=== PATIENT | male | born 1975 | race Caucasian/White ===

== ENCOUNTER 2017-05-26 12:21 | Day surgery (SDC) | payer OTHER ==
[~2017-05-26] VITALS: Ht 195.6 cm; Wt 108.4 kg
[~2017-05-26 12:21] MED LIST: ASACOL HD800 MG PO; CENTRUM COMPLE1 EACH PO; DICYCLOMINE HCL10 MG PO; IRON18 MG PO; PREDNISONE1 MG PO; PREDNISONE10 MG PO; PREDNISONE20 MG PO; PROTONIX40 MG PO; TYLENOL EXTRA500 MG PO; ZANTAC150 MG PO
[2017-05-26] MEDS ORDERED: LIALDA1.2 GM PO (12:45)
[2017-05-26] MEDS ORDERED: [UNRECOGNIZED DRUG - OTHER] (12:47)
== END 2017-05-26 14:45 | disposition home or self-care (01) ==
LOC: PAIN 12:21 → SDC 13:45 → PAIN 14:45
DX: M51.16 Intervertebral disc disorders with radiculopathy, lumbar region (principal); M47.26 Other spondylosis with radiculopathy, lumbar region; E66.3 Overweight; Z68.28 Body mass index [BMI] 28.0-28.9, adult; K21.9 Gastro-esophageal reflux disease without esophagitis; D50.9 Iron deficiency anemia, unspecified; D50.0 Iron deficiency anemia secondary to blood loss (chronic); D47.3 Essential (hemorrhagic) thrombocythemia; K51.90 Ulcerative colitis, unspecified, without complications; Z87.891 Personal history of nicotine dependence; Z88.0 Allergy status to penicillin
CPT/HCPCS: J1100; J2250; J3010

== ENCOUNTER 2017-06-24 07:29 | Day surgery (SDC) | payer OTHER ==
[~2017-06-24] VITALS: Ht 195.6 cm; Wt 108.4 kg
[~2017-06-24 07:29] MED LIST changes: +LIALDA1.2 GM PO; +[UNRECOGNIZED DRUG - OTHER]
== END 2017-06-24 09:40 | disposition home or self-care (01) ==
LOC: PAIN 07:29 → SDC 08:15 → PAIN 09:40
DX: M47.26 Other spondylosis with radiculopathy, lumbar region (principal); M51.16 Intervertebral disc disorders with radiculopathy, lumbar region; E66.3 Overweight; Z68.28 Body mass index [BMI] 28.0-28.9, adult; K51.90 Ulcerative colitis, unspecified, without complications; K21.9 Gastro-esophageal reflux disease without esophagitis; D50.0 Iron deficiency anemia secondary to blood loss (chronic); D47.3 Essential (hemorrhagic) thrombocythemia; Z87.891 Personal history of nicotine dependence; Z88.0 Allergy status to penicillin
CPT/HCPCS: J1030; J2250; J3010; S0020